=== PATIENT | female | born 1945 | race Caucasian/White ===

== ENCOUNTER → 2016-08-10 | Outpatient (CLI) | payer OTHER ==
[~2016-08-10] MED LIST: AUGMENTIN875 MG PO; BACTRIM,SEPT1 TABLET PO; COMPAZINE10 MG PO; COUMADIN5 MG PO; DOCUSATE SODIU100 MG PO; ERBITUX IV; FUROSEMIDE40 MG PO; HYDROCHLOROTHIA25 MG PO; HYDROCODON-ACE1 EAC7 PO; IRINOTECAN IV; LISINOPRIL20 MG PO; LISINOPRIL30 MG PO; LOVENOX60 MG/0.6 SC; PAIN RELIEVER500 MG PO; VICODIN 5-3001 EACH PO; WARFARIN SODIU2.5 MG PO; WARFARIN SODIUM5 MG PO; XELODA500 MG PO; ZOFRAN4 MG PO
== END | disposition home or self-care (01) ==
LOC: RAD 13:07 → EDSTATUS 13:30
DX: C18.9 Malignant neoplasm of colon, unspecified (principal); N13.30 Unspecified hydronephrosis
CPT/HCPCS: 50435; 75984; C1725; C1769

== ENCOUNTER → 2016-11-01 | Outpatient (CLI) | payer OTHER ==
[~2016-11-01] MED LIST changes: +ATIVAN0.5 MG PO; +DURAGESIC100 MCG TD; +KADIAN10 MG PO
== END | disposition home or self-care (01) ==
LOC: RAD 13:45 → EDSTATUS 14:30
DX: N30.01 Acute cystitis with hematuria (principal); N13.30 Unspecified hydronephrosis; Z93.6 Other artificial openings of urinary tract status
CPT/HCPCS: 50435; C1725